=== PATIENT | female | born 1960 | race Caucasian/White ===

== ENCOUNTER 2017-03-07 09:14 | Emergency (ER) | payer BC ==
[2017-03-07 09:59] VITALS: BP 116/55
[2017-03-07] MEDS ORDERED: Amoxicillin/Clavulanate K 875-125 MG Tab ONE (10:00)
--- NOTE | 2017-03-07 10:20 | EDM.PDOC ---
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 She has had a worsening episode of sinus pain, drainage and congestion that has not gotten better over the past 7 days. She needs to get on an antibiotic or she will be in bad shape in the next few days. Augmentin is the antibiotic that works best. She has seen ENT and needs to see an life teacher, which she is trying to arrange. No fever or chills but she does have a dry cough. Onset: Gradual Onset Date: 02/28/17 Onset Time: 07:00 Duration: Day(s): (7) Location: Reports: Head, Face Quality: Reports: Ache, Dull, Pressure Severity: Moderate Improves with: Reports: Medication Worsens with: Reports: None Context: Reports: Other (Chronic sinusitis.) Associated Symptoms: Reports: Cough Treatments TILLER MAN: Reports: NSAIDS, Other Medication(s) (Zyrtec) Headache Pain Score (Numeric/FACES): 3 - Related Data Allergies Allergy/AdvReac Type Severity Reaction Status Date / Time acetaminophen [From Tylenol] Allergy Rash Verified 03/07/17 09:33 cephalexin monohydrate Allergy Cannot Verified 03/07/17 09:33 [From Keflex] Remember lisinopril Allergy Cough Verified 03/07/17 09:33 morphine Allergy Cannot Verified 03/07/17 09:33 Remember Sulfa (Sulfonamide Allergy Headache Verified 03/07/17 09:33 Antibiotics) Home Meds: Home Meds Cetirizine HCl [Zyrtec] 1 tab PO DAILY 12/01/13 [History] Furosemide [Lasix] 40 mg PO DAILY 12/01/13 [History] Hydrochlorothiazide/Valsartan [Diovan HCT 160-12.5 MG] 1 tab PO DAILY 12/01/13 [ History] Levothyroxine 137 mcg PO DAILY 12/01/13 [History] Multivitamin [Multi Vitamin Daily] 1 cap PO DAILY 12/01/13 [History] Omeprazole 20 mg PO BID 04/17/14 [History] Methocarbamol [Methocarbamol] 750 mg PO QID 12/14/13 [History] Albuterol Sulfate 2.5 mg IH Q4H 03/06/17 [History] Ascorbic Acid/Ascorbate Sodium [Vitamin C 500 mg Wafer] 2 tab PO DAILY 03/06/17 [History] Cholecalciferol (Vitamin D3) [Vitamin D] 4,000 units PO DAILY 03/06/17 [History] Clobetasol [Clobetasol 0.05%] 1 strip TOP DAILY 03/06/17 [History] Glucosamine/D3/Boswellia Nina [Osteo Bi-Flex Caplet] 4 tab PO DAILY 03/06/17 [ History] Ibuprofen 2 tab PO Q6H PRN 03/06/17 [History] L.acidoph,Paracasei, B.lactis [Probiotic] 2 tab PO DAILY 03/06/17 [History] Metoprolol Succinate [Toprol XL] 25 mg PO DAILY 03/06/17 [History] Dewitt 3,6,9 Combination No.7 [Dewitt Dha] 3 tab PO DAILY 03/06/17 [History] Venlafaxine [Effexor XR] 1 tab PO DAILY 03/06/17 [History] Vitamin A 2 tab PO DAILY 03/06/17 [History] busPIRone [Buspar] 1 tab PO BID 03/06/17 [History] Past Medical History HEENT History: Reports: Other (See Below) Other HEENT History: wears glasses, mildly [place] per patient, sinus allergy Cardiovascular History: Reports: None, Hypertension Respiratory History: Reports: None Gastrointestinal History: Reports: None RAP ARTIST History: Reports: None Other OB/BYN History: no pregnancies. endometriosis, hysterectomy Musculoskeletal History: Reports: Other (See Below) Other Musculoskeletal History: right knee pain Oncologic (Cancer) History: Reports: None Other Dermatologic History: lichen planus - Past Surgical History Head Surgeries/Procedures: Reports: None Other Cardiovascular Surgeries/Procedures: stress test showed some blockage Other Respiratory Surgeries/Procedures: sleep study advised Musculoskeletal Surgical History: Reports: Knee Replacement, Other (See Below) Social & Family History - Tobacco Use Years of Tobacco use: 20 Used Tobacco, but Quit: Yes - Alcohol Use Days Per Week of Alcohol Use: 0 - Recreational Drug Use Recreational Drug Use: No ED ROS GENERAL - Review of Systems Review Of Systems: See Below Constitutional: Reports: No Symptoms HEENT: Reports: Sinus Problem Respiratory: Reports: Cough Cardiovascular: Reports: No Symptoms Endocrine: Reports: No Symptoms GI/Abdominal: Reports: No Symptoms : Reports: No Symptoms Musculoskeletal: Reports: No Symptoms Skin: Reports: No Symptoms Neurological: Reports: No Symptoms Psychiatric: Reports: No Symptoms Hematologic/Lymphatic: Reports: No Symptoms Immunologic: Reports: Environmental Allergy, Seasonal Allergy ED EXAM, GENERAL - Physical Exam Exam: See Below Exam Limited By: No Limitations General Appearance: Alert Eye Exam: Bilateral Eye: Normal Fundi, Normal Inspection Ears: Normal External Exam, Normal Canal, Hearing Grossly Normal, Normal TMs Ear Exam: Bilateral Ear: Auricle Normal, Canal Normal, TM normal Nose: Normal Inspection, Normal Mucosa, No Blood Throat/Mouth: Normal Inspection, Normal Lips, Normal Teeth, Normal Gums, Normal Oropharynx, Normal Voice, No Airway Compromise Head: Sinus Tenderness Neck: Normal Inspection, Supple, Non-Tender, Full Range of Motion Respiratory/Chest: No Respiratory Distress, Lungs Clear, Normal Breath Sounds, No Accessory Muscle Use, Chest Non-Tender Cardiovascular: Normal Peripheral Pulses, Regular Rate, Rhythm, No Edema, No Gallop, No JVD, No Murmur, No Rub GI/Abdominal: Normal Bowel Sounds, Soft, Non-Tender, No Organomegaly, No Distention, No Abnormal Bruit, No Mass Extremities: Normal Inspection, Normal Range of Motion, Non-Tender, Normal Capillary Refill, No Pedal Edema Neurological: Alert, Oriented, CN II-XII Intact, Normal Cognition, Normal Gait, Normal Reflexes, No Motor/Sensory Deficits Psychiatric: Normal Affect, Normal Mood Skin Exam: Warm, Dry, Intact, Normal Color, No Rash Lymphatic: No Adenopathy Course - Vital Signs Text/Narrative:: Patient had an uneventful ED course. She was given Augmentin 875 mg po bid for 10 days, was told to steam her sinuses, rest, push fluids, ibuprofen 800 mg po q 6 hours and recheck as needed. She will follow up with her PCP and life teacher as scheduled. Last Recorded V/S: Last Vital Signs Temp 36.8 C 03/07/17 09:30 Pulse 98 03/07/17 09:30 Resp BP 116/55 L 03/07/17 09:30 Pulse Ox 98 03/07/17 09:30 Departure - Departure Time of Disposition: 10:25 Disposition: Home, Self-Care 01 Condition: Good Clinical Impression: Sinusitis - Discharge Information Forms: ED Department Discharge
== END 2017-03-07 10:25 | disposition home or self-care (01) ==
LOC: LB.ED 09:14
DX: J32.9 Chronic sinusitis, unspecified (principal); I10 Essential (primary) hypertension; Z88.5 Allergy status to narcotic agent; Z88.2 Allergy status to sulfonamides; Z88.8 Allergy status to other drugs, medicaments and biological substances; Z88.1 Allergy status to other antibiotic agents; Z79.899 Other long term (current) drug therapy
CPT/HCPCS: 99283; A9270

== ENCOUNTER 2018-01-23 16:33 | Emergency (ER) | payer BC ==
[2018-01-23 16:51] VITALS: BP 156/74
[2018-01-23] MEDS ORDERED: traMADol 50 MG Tab ONE (17:00)
--- NOTE | 2018-01-23 17:26 | EDM.PDOC ---
ED HPI GENERAL MEDICAL PROBLEM - General Chief Complaint: General Stated Complaint: possible tooth abscess Time Seen by Provider: 01/23/18 17:00 Source of Information: Reports: Patient History Limitations: Reports: No Limitations - History of Present Illness INITIAL COMMENTS - FREE TEXT/NARRATIVE: According to patient she had her left upper molar tooth pulled on Thursday and since then she has been having pain in her left upper jaw and the pain radiates into her left cheek bone. No swelling of the face. no fever or chills. No nausea or vomiting. Onset: Today Onset Date: 01/19/18 Duration: Waxing/Waning Location: Reports: Other (Tooth) Quality: Reports: Ache Severity: Moderate Improves with: Reports: None Worsens with: Reports: None Associated Symptoms: Denies: Confusion, Chest Pain, Cough, Diaphoresis, Fever/ Chills, Headaches, Nausea/Vomiting, Rash, Seizure, Shortness of Breath, Syncope , Weakness Treatments EXTRUSION PRESS OPERATOR: Reports: NSAIDS, Other Medication(s) Other Treatments EXTRUSION PRESS OPERATOR: see above left upper tooth Pain Score (Numeric/FACES): 9 - Related Data Allergies Allergy/AdvReac Type Severity Reaction Status Date / Time acetaminophen [From Tylenol] Allergy Rash Verified 06/29/17 08:19 lisinopril Allergy Cough Verified 06/29/17 08:19 morphine Allergy Cannot Verified 06/29/17 08:19 Remember oxycodone Allergy Itching Verified 06/29/17 08:19 Sulfa (Sulfonamide Allergy Headache Verified 06/29/17 08:19 Antibiotics) Home Meds: Home Meds Cetirizine HCl [Zyrtec] 1 tab PO DAILY 12/01/13 [History] Furosemide [Lasix] 40 mg PO DAILY 12/01/13 [History] Levothyroxine 137 mcg PO DAILY 12/01/13 [History] Omeprazole 20 mg PO BID 12/01/13 [History] Albuterol Sulfate 2.5 mg IH Q4H 03/06/17 [History] Ascorbic Acid/Ascorbate Sodium [Vitamin C 500 mg Wafer] 2 tab PO DAILY 03/06/17 [History] Ibuprofen 2 tab PO Q6H PRN 03/06/17 [History] Metoprolol Succinate [Toprol XL] 25 mg PO DAILY 03/06/17 [History] Venlafaxine [Effexor XR] 1 tab PO DAILY 03/06/17 [History] busPIRone [Buspar] 1 tab PO BID 03/06/17 [History] Aspirin [Ravindra Chewable] 81 mg PO DAILY 06/29/17 [History] Valsartan/Hydrochlorothiazide [Valsartan-Hctz 160-25 mg Tab] 1 each PO DAILY [History] Past Medical History HEENT History: Reports: None Other HEENT History: wears glasses, mildly [place] per patient Cardiovascular History: Reports: None Respiratory History: Reports: None Gastrointestinal History: Reports: None DIRECT CUSTOMER SERVICE REPRESENTATIVE History: Reports: None Other OB/BYN History: no pregnancies. endometriosis, hysterectomy Musculoskeletal History: Reports: Other (See Below) Other Musculoskeletal History: right knee pain Oncologic (Cancer) History: Reports: None Other Dermatologic History: lichen planus - Past Surgical History Head Surgeries/Procedures: Reports: None Other Respiratory Surgeries/Procedures: sleep study advised Musculoskeletal Surgical History: Reports: Other (See Below) Other Musculoskeletal Surgeries/Procedures:: L TKA 04/01 ED ROS GENERAL - Review of Systems Review Of Systems: See Below Constitutional: Denies: Fever, Chills, Weakness, Fatigue HEENT: Reports: Dental Pain. Denies: Rhinitis, Throat Pain, Throat Swelling Cardiovascular: Denies: Chest Pain, Lightheadedness GI/Abdominal: Denies: Abdominal Pain, Nausea, Vomiting Skin: Denies: Pruritis, Rash ED EXAM, GENERAL - Physical Exam Exam: See Below Exam Limited By: No Limitations General Appearance: Alert, WD/WN, Mild Distress Eye Exam: Bilateral Eye: EOMI, PERRL Ears: Normal External Exam, Normal Canal, Hearing Grossly Normal, Normal TMs Ear Exam: Bilateral Ear: Auricle Normal, Canal Normal, TM normal Nose: Normal Inspection, Normal Mucosa, No Blood Throat/Mouth: Normal Inspection, Normal Lips, Normal Gums, Normal Oropharynx, Normal Voice, No Airway Compromise, Other (Oral caavity: there are loss of several teeth in all quadrants. there is a fresh tooth extraction over the left upper molar. the socket is open adn gum appear normal. No swelling of gums or drainage from the area. ) Head: Atraumatic, Normocephalic Neck: Normal Inspection, Supple, Non-Tender, Full Range of Motion Respiratory/Chest: No Respiratory Distress, Lungs Clear, Normal Breath Sounds, No Accessory Muscle Use, Chest Non-Tender Cardiovascular: Normal Peripheral Pulses, Regular Rate, Rhythm, No Edema, No Gallop, No JVD, No Murmur, No Rub Course - Vital Signs Text/Narrative:: Pt reassured, that I do not see any signs of infection. the gum appear normal, but the root socket is exposed. Pt reassured. I have started her on tramadol 50mg every 4 hrs as needed for pain. Also advised to use benzocaine gel around the socket. If pain is not better followup with her dentist. Last Recorded V/S: Last Vital Signs Temp 98 F 01/23/18 16:45 Pulse 60 01/23/18 16:45 Resp 16 01/23/18 16:45 BP 156/74 H 01/23/18 16:45 Pulse Ox 98 01/23/18 16:45 Departure - Departure Time of Disposition: 16:00 Disposition: Home, Self-Care 01 Condition: Fair Clinical Impression: Pain, dental - Discharge Information Instructions: Benzocaine mouth gel, ointment, solution, or dental paste, Dental Dry Socket Forms: ED Department Discharge Additional Instructions: Use the orajel every 2 hours, rub on the socket with a Q-tip. You can take Tramadol 2 tabs every 8 hours or 1 every 4 hours. If the pain is not better on Thursday, see the dentist. - Problem List & Annotations (1) Pain, dental SNOMED Code(s): 39038893 Code(s): K08.89 - OTHER SPECIFIED DISORDERS OF TEETH AND SUPPORTING STRUCTURES Status: Acute Current Visit: Yes - Problem List Review Problem List Initiated/Reviewed/Updated: Yes - Assessment/Plan Assessment:: Dental pain- root pain Plan: Pt reassured, that I do not see any signs of infection. the gum appear normal, but the root socket is exposed. Pt reassured. I have started her on tramadol 50mg every 4 hrs as needed for pain. Also advised to use benzocaine gel around the socket. If pain is not better followup with her dentist.
== END 2018-01-23 17:15 | disposition home or self-care (01) ==
LOC: LB.ED 16:33
DX: K08.89 Other specified disorders of teeth and supporting structures (principal); Z79.899 Other long term (current) drug therapy; Z88.5 Allergy status to narcotic agent; Z88.2 Allergy status to sulfonamides
CPT/HCPCS: 99282; A9270

== ENCOUNTER 2022-04-08 13:07 | Emergency (ER) | payer MEDICARE ==
[2022-04-08] MEDS ORDERED: GI Cocktail Oral Solution 30 ML PO ONE (13:41)
[2022-04-08] MEDS ORDERED: Sodium Chloride 0.9% 1,000 ML IV ONE (13:44)
[2022-04-08 14:05] VITALS: BP 156/90; PULSE 65
[2022-04-08 14:17] LABS: ESTIMATED GFR 73 mL/min (>60); TROPONIN I HIGH SENSITIVITY 7.7 pg/ml (<=60.4)
[2022-04-08] MEDS ORDERED: Pantoprazole 80 MG in Sodium Chloride 0.9% 100 ML IV ONE (15:33)
[2022-04-08] MEDS ORDERED: Pantoprazole 40 MG Vial ONE (16:25)
== END 2022-04-08 18:07 | disposition home or self-care (01) ==
LOC: LB.ED 13:07
DX: R07.89 Other chest pain (principal); Z88.5 Allergy status to narcotic agent; Z88.2 Allergy status to sulfonamides; Z88.8 Allergy status to other drugs, medicaments and biological substances; Z79.899 Other long term (current) drug therapy
CPT/HCPCS: 36415; 71250; 80053; 84484; 85025; 85610; 93005; 96361; 96365; 99285; A9270; C9113; J3490; J7030; 93010; 99282

== ENCOUNTER 2022-08-21 09:47 | Day surgery (SDC) | payer MEDICARE ==
[~2022-08-21 09:47] MED LIST: Sodium Chloride 0.9% 1,000 ML IV SCH
[2022-08-21] MEDS: Sodium Chloride 0.9% 1,000 ML IV SCH (10:30)
[2022-08-21] MEDS ORDERED: Propofol 200 MG/20 ML SDV ONE (11:10)
[2022-08-21 11:39] VITALS: BP 95/59; PULSE 62
== END 2022-08-21 12:29 | disposition home or self-care (01) ==
LOC: LB.SDS 09:47
PROVIDERS: ATTEND Surgery
DX: R13.10 Dysphagia, unspecified (principal); K21.9 Gastro-esophageal reflux disease without esophagitis; K31.7 Polyp of stomach and duodenum; I10 Essential (primary) hypertension; F32.A Depression, unspecified; Z88.2 Allergy status to sulfonamides; Z88.6 Allergy status to analgesic agent; Z88.5 Allergy status to narcotic agent; Z88.8 Allergy status to other drugs, medicaments and biological substances
CPT/HCPCS: 88305; J2704; J7030

== ENCOUNTER 2024-05-03 14:06 | Emergency (ER) | payer MEDICARE ==
[2024-05-03 14:55] LABS: BASOPHILS ABSOLUTE AUTO 0.03 K/uL (0.02-0.10); BASOPHILS PERCENT AUTO 0.2 % (0.0-0.5); EOSINOPHILS ABSOLUTE AUTO 0.18 K/uL (0.04-0.40); EOSINOPHILS PERCENT AUTO 1.3 % (1.0-5.0); HEMATOCRIT 47.4 % (37.0-47.0); HEMOGLOBIN 17.2 g/dL (11.5-16.5); LYMPHOCYTES ABSOLUTE AUTO 2.32 K/uL (1.50-4.00); LYMPHOCYTES PERCENT AUTO 16.3 % (20.0-40.0); MEAN CORPUSCULAR HEMOGLOBIN 31.9 pg (27.0-32.0); MEAN CORPUSCULAR HGB CONC 36.3 g/dL (31.0-35.0); MEAN CORPUSCULAR VOLUME 88 fL (76-96); MEAN PLATELET VOLUME 10.8 fL (6.0-10.0); MONOCYTES ABSOLUTE AUTO 1.31 K/uL (0.20-0.80); MONOCYTES PERCENT AUTO 9.2 % (3.0-10.0); NEUTROPHILS ABSOLUTE AUTO 10.42 K/uL (2.00-7.50); PLATELET COUNT,PLT 293 K/uL (150-500); RED CELL DISTRIBUTION WIDTH 12.5 % (11.0-16.0); WHITE BLOOD CELL COUNT,WBC 14.3 K/uL (4.0-11.0)
[2024-05-03 15:18] LABS: A/G RATIO 0.9 (0.8-2.0); ALBUMIN 3.8 g/dL (3.4-5.0); ANION GAP 15.3 mmol/L (5.0-15.0); BILIRUBIN TOTAL 1.6 mg/dL (0.0-1.0); BUN/CREATININE RATIO 12.2 (6-25); CALCIUM 9.8 mg/dL (8.5-10.1); CARBON DIOXIDE,CO2 26.6 mmol/L (21.0-32.0); CREATININE 1.47 mg/dL (0.55-1.02); EST CRCL DRUG DOSING (CG) 32.95 mL/min; PROTEIN TOTAL,TP 8.1 g/dL (6.4-8.2)
[2024-05-03 15:27] LABS: POTASSIUM,K 2.9 mmol/L (3.5-5.1)
[2024-05-03] MEDS: NS + KCl 20mEq/L 1,000 ML IV SCH (15:53)
[2024-05-03 19:24] VITALS: BP 149/82; PULSE 64
[2024-05-06] MEDS: Sodium Chloride 0.9% 1,000 ML IV ONE (08:51)
== END 2024-05-03 17:26 | disposition home or self-care (01) ==
LOC: LB.ED 14:06
DX: R55 Syncope and collapse (principal); K21.9 Gastro-esophageal reflux disease without esophagitis; Z87.891 Personal history of nicotine dependence; Z90.710 Acquired absence of both cervix and uterus; Z79.899 Other long term (current) drug therapy; Z79.82 Long term (current) use of aspirin; Z88.5 Allergy status to narcotic agent; Z88.2 Allergy status to sulfonamides; Z88.8 Allergy status to other drugs, medicaments and biological substances
CPT/HCPCS: 36415; 71045; 80053; 84484; 85025; 93005; 96365; 99285; J3480